=== PATIENT | female | born 1970 | race Caucasian/White ===

== ENCOUNTER 2022-02-15 11:56 | Day surgery (SDC) | payer MEDICARE ==
[2022-02-15] MEDS ORDERED: Depo-Medrol 40 MG/ML IM ONE (11:57)
[2022-02-15] MEDS ORDERED: BUPIVACAINE 0.5% VIAL IJ ONE (11:57)
[2022-02-15] MEDS ORDERED: Xylocaine 1% Vial 30 ML PF IJ ONE (11:57)
[2022-02-15] MEDS ORDERED: DIPRIVAN 200 MG/20 ML IV ONE (13:30)
[2022-02-15] MEDS ORDERED: Lactated Ringers 1,000 ML IV ONE (14:31)
--- NOTE | 2022-02-15 15:20 | XRAY ---
Indication: Bilateral costochondral injection and injection around pacemaker. Intraoperative fluoroscopy provided for 18 seconds. 4 digital spot images submitted for interpretation demonstrates 2 needle tips projecting midsternum and additional needle tip inferior to left pacemaker. Correlate with intraoperative findings/report.
--- NOTE | 2022-02-15 15:25 | XRAY ---
18 seconds fluoroscopy time in surgery for injections of the costochondral joints.
== END 2022-02-15 14:00 | disposition home or self-care (01) ==
LOC: SDC-PAIN 11:56
PROVIDERS: ATTEND Psychiatry & Neurology Pain Medicine
DX: M79.18 Myalgia, other site (principal); M94.0 Chondrocostal junction syndrome [Tietze]; Z79.899 Other long term (current) drug therapy
CPT/HCPCS: 20553; 20600; 72020; 77002; 81025; J1030; J2001; J2704

== ENCOUNTER 2024-02-05 15:20 | Emergency (ER) | payer MEDICARE ==
--- NOTE | 2024-02-05 15:30 | ERPHSYRPT ---
- History of Present Illness Time Seen by Provider: 02/05/24 15:30 Source: patient Exam Limitations: no limitations Physician History: This is an overweight 53-year-old white female patient of Dr. Taylor who presents with what she believes is a right inner ankle spider bite. She did not witness an insect of any kind biting her on the skin. She was just assuming because there have been a lot of spiders around her household recently. In the last year she has had lesions in this area repeatedly. She has always assumed that it is an insect bite. She also has associated joint pain and diarrhea that occurred recently. She is not on any antibiotic at this time. She has no history of diagnosed rheumatoid arthritis or other immunologic or rheumatologic disorders. Patient went to see her primary care provider today and he told her to come to the emergency department. Patient has a history of CHF, COPD and hypothyroidism. Timing/Duration: day(s) (3) Quality: burning, itchy Severity: mild Location: other (Medial aspect right ankle) Possible Causes: no cause identified Associated Symptoms: change in skin texture (Medial aspect right ankle) Allergies/Adverse Reactions: aspirin Adverse Reaction (Verified 02/05/24 15:48) Difficulty Swallowing gluten Adverse Reaction (Verified 02/05/24 15:48) Penicillins Adverse Reaction (Verified 02/05/24 15:48) Rash phenobarbital Adverse Reaction (Verified 02/05/24 15:48) "messes with heart" promethazine [From Phenergan] Adverse Reaction (Verified 02/05/24 15:48) "messes with heart" Home Medications: Albuterol 8 gm Mdi Hfa [Ventolin Hfa MDI] 1 puff IH Q12H PRN PRN 02/05/24 [History] Levothyroxine Sodium See Rx Instructions .ROUTE .COMPLEX 02/05/24 [History] Sacubitril/Valsartan [Entresto 24 mg-26 mg Tablet] 1 tab PO DAILY 02/05/24 [History] Torsemide 20 mg [Demadex 20 mg] 1 tab PO DAILY PRN 02/05/24 [History] Travel Risk - International Travel Have you traveled outside of the country in past 3 weeks: No - Emerging Infectious Disease Are you exhibiting symptoms associated with any current EIDs: No - Review of Systems Constitutional: No Symptoms, Night Sweats Ears, Nose, & Throat: No Symptoms Respiratory: No Symptoms Cardiac: No Symptoms Abdominal/Gastrointestinal: Diarrhea, No Abdominal Pain, No Nausea, No Vomiting, No Constipation, No Appetite Changes Genitourinary Symptoms: No Symptoms Musculoskeletal: Arthralgias, Myalgias Skin: Other (Right ankle medial aspect ulcerations/lesions x 3) Neurological: No Symptoms Psychological: No Symptoms Endocrine: No Symptoms Hematologic/Lymphatic: No Symptoms Immunological/Allergic: No Symptoms All Other Systems: Reviewed and Negative - Past Medical History Pertinent Past Medical History: Yes - Past Surgical History Past Surgical History: Yes - Nursing Vital Signs Nursing Vital Signs: Initial Vital Signs Temperature 97.4 F 02/05/24 15:34 Pulse Rate 80 02/05/24 15:34 Respiratory Rate 17 02/05/24 15:34 Blood Pressure 184/77 02/05/24 15:34 O2 Sat by Pulse Oximetry 99 02/05/24 15:34 Pain Scale Pain Intensity 2 - Physical Exam General Appearance: no apparent distress, alert, anxiety, obese Eye Exam: PERRL/EOMI, eyes nml inspection Ears, Nose, Throat Exam: normal ENT inspection, moist mucous membranes Neck Exam: normal inspection, non-tender, supple, full range of motion Respiratory Exam: normal breath sounds, lungs clear, airway intact, No chest tenderness, No respiratory distress Cardiovascular Exam: regular rate/rhythm, normal heart sounds, normal peripheral pulses Gastrointestinal/Abdomen Exam: No tenderness Pelvic Exam: not done Rectal Exam: not done Back Exam: normal inspection, normal range of motion, No CVA tenderness, No vertebral tenderness Extremity Exam: tenderness (Mild tenderness medial aspect right ankle with 3 coalesced ulcerations/lesions.) Neurologic Exam: alert, oriented x 3, cooperative, multineedle shirrer II-XII nml as tested, sensation nml Skin Exam: other (See above extremity section) - Course Nursing assessment & vital signs reviewed: Yes Ordered Tests: Active Orders 24 hr Category Date Time Status BLOOD CULTURE Stat Lab 02/05/24 17:15 Received CBC W DIFF Stat Lab 02/05/24 17:30 Completed CMP Stat Lab 02/05/24 17:30 Completed ESR [Erythrocyte Sedimentation Rate] Stat Lab 02/05/24 17:30 Completed Lactic Acid Stat Lab 02/05/24 17:00 Completed PROCALCITONIN Stat Lab 02/05/24 17:30 Completed Medication Summary Discontinued Medications Generic Name Dose Route Start Last Admin Trade Name Missy PRN Reason Stop Dose Admin Doxycycline Hyclate 100 mg 02/05/24 18:22 Doxycycline Hyclate 100 Mg Tablet PO 02/05/24 18:23 STAT ONE Metronidazole 500 mg 02/05/24 18:22 Metronidazole 500 Mg Tablet PO 02/05/24 18:23 STAT ONE Lab/Rad Data: Laboratory Result Diagrams 02/05/24 17:30 02/05/24 17:30 Laboratory Results 02/05/24 02/05/24 02/05/24 Range/Units 17:30 17:30 17:30 WBC (3.98-10.04) x10^3/uL RBC (3.93-5.22) x10^6/uL Hgb (11.2-15.7) g/dL Hct (34.1-44.9) % MCV (79.4-94.8) fL MCH (25.6-32.2) pg MCHC (32.2-35.5) g/dL RDW (11.7-14.4) % Plt Count (182-369) x10^3/uL MPV (9.4-12.3) fL Gran % (34.0-71.1) % Immature Gran % (Auto) (0.001-0.429) % Nucleat RBC Rel Count (0.00-0.2) % Eos # (Auto) (0.04-0.36) x10^3/uL Immature Gran # (Auto) (0.001-0.031) x10^3u/L Absolute Lymphs (auto) (1.18-3.74) x10^3/uL Absolute Monos (auto) (0.24-0.86) x10^3/uL Absolute Nucleated RBC (0.00-0.012) x10^3u/L Lymphocytes % (19.3-51.7) % Monocytes % (4.7-12.5) % Eosinophils % (0.7-5.8) % Basophils % (0.1-1.2) % Absolute Granulocytes (1.56-6.13) x10^3/uL Basophils # (0.01-0.08) x10^3/uL ESR 11 (0-20) mm/hr Sodium 141 (135-145) mmol/L Potassium 3.5 (3.5-5.1) mmol/L Chloride 106 (98-107) mmol/L Carbon Dioxide 24 (22-30) mmol/L Anion Gap 14.4 (5-15) MEQ/L BUN 14 (7-17) mg/dL Creatinine 0.91 (0.52-1.04) mg/dL Estimated GFR 75.9 ML/MIN Glucose 101 (74-106) mg/dL Lactic Acid (0.4-2.0) Calcium 9.0 (8.4-10.2) mg/dL Total Bilirubin 0.40 (0.2-1.3) mg/dL AST 29 (14-36) U/L ALT 19 (0-35) U/L Alkaline Phosphatase 81 (38-126) U/L Serum Total Protein 7.2 (6.3-8.2) g/dL Albumin 4.2 (3.5-5.0) g/dL Procalcitonin < 0.030 L (0.030-0.080) ng/mL 02/05/24 02/05/24 Range/Units 17:30 17:00 WBC 4.9 (3.98-10.04) x10^3/uL RBC 4.06 (3.93-5.22) x10^6/uL Hgb 11.4 (11.2-15.7) g/dL Hct 35.7 (34.1-44.9) % MCV 87.9 (79.4-94.8) fL MCH 28.1 (25.6-32.2) pg MCHC 31.9 L (32.2-35.5) g/dL RDW 13.7 (11.7-14.4) % Plt Count 116 L (182-369) x10^3/uL MPV 10.5 (9.4-12.3) fL Gran % 65.2 (34.0-71.1) % Immature Gran % (Auto) 0.2 (0.001-0.429) % Nucleat RBC Rel Count 0.0 (0.00-0.2) % Eos # (Auto) 0.06 (0.04-0.36) x10^3/uL Immature Gran # (Auto) 0.01 (0.001-0.031) x10^3u/L Absolute Lymphs (auto) 1.40 (1.18-3.74) x10^3/uL Absolute Monos (auto) 0.19 L (0.24-0.86) x10^3/uL Absolute Nucleated RBC 0.00 (0.00-0.012) x10^3u/L Lymphocytes % 28.9 (19.3-51.7) % Monocytes % 3.9 L (4.7-12.5) % Eosinophils % 1.2 (0.7-5.8) % Basophils % 0.6 (0.1-1.2) % Absolute Granulocytes 3.16 (1.56-6.13) x10^3/uL Basophils # 0.03 (0.01-0.08) x10^3/uL ESR (0-20) mm/hr Sodium (135-145) mmol/L Potassium (3.5-5.1) mmol/L Chloride (98-107) mmol/L Carbon Dioxide (22-30) mmol/L Anion Gap (5-15) MEQ/L BUN (7-17) mg/dL Creatinine (0.52-1.04) mg/dL Estimated GFR ML/MIN Glucose (74-106) mg/dL Lactic Acid 0.9 (0.4-2.0) Calcium (8.4-10.2) mg/dL Total Bilirubin (0.2-1.3) mg/dL AST (14-36) U/L ALT (0-35) U/L Alkaline Phosphatase (38-126) U/L Serum Total Protein (6.3-8.2) g/dL Albumin (3.5-5.0) g/dL Procalcitonin (0.030-0.080) ng/mL - Progress Progress: unchanged Progress Note: 02/05/24 18:37 My medical decision making and the assignment of moderate complexity to this patient's medical issue today is based on review of the patient's past medical history, review of the patient's medication list, review of the patient drug allergy list, history present illness and physical findings on examination. The workup in this patient includes procalcitonin level, ESR, lactic acid level, CBC, CMP and blood culture. Differential diagnosis includes but is not limited to an insect bite, varicose eczema I interpreted the patient's laboratory data results. Based on the results, the patient does not have an acute or emergent medical issue. It is my belief based on what I am seeing and also review of the laboratory data results, this patient has, more likely, a varicosity ulceration/eczema and not an insect bite. It seems highly unlikely that 3 separate times an insect bit her in the same area. On inspection and in my experience it is more likely a vascular issue. However, the patient is convinced there is an infection present and we will place her on doxycycline and Flagyl to help with her "infection". The doxycycline for skin issue and the Flagyl for controlling the diarrhea. 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 Take your ant ibiotics and other medications as prescribed. Follow-up with your primary care provider tomorrow by phone, 02/06/2024, to make arrangements for follow-up appointment including a discussion with possible referral to a vascular surgeon if indicated Prescriptions: Metronidazole 500 mg [Flagyl 500 MG] 500 mg PO TID #15 tablet Doxycycline Hyclate 100 mg [Vibramycin 100 MG] 100 mg PO BID #10 tab
[2024-02-05 15:55] VITALS: TEMP 97.4
[2024-02-05 17:46] LABS: Absolute Neutrophil Ct (ANC) 3.16 x10^3/uL (1.56-6.13); BASOPHIL % 0.6 % (0.1-1.2); Basophil (Absolute #) 0.03 x10^3/uL (0.01-0.08); Eosinophil % 1.2 % (0.7-5.8); Eosinophil (Absolute #) 0.06 x10^3/uL (0.04-0.36); Hematocrit 35.7 % (34.1-44.9); Hemoglobin 11.4 g/dL (11.2-15.7); IMMATURE GRAN # 0.01 x10^3u/L (0.001-0.031); IMMATURE GRAN % 0.2 % (0.001-0.429); Lymphocytes % 28.9 % (19.3-51.7); Mean Cell Volume 87.9 fL (79.4-94.8); Mean Corpuscular Hemoglobin 28.1 pg (25.6-32.2); Mean Corpuscular Hgb Concent. 31.9 g/dL (32.2-35.5); Mean Platelet Volume 10.5 fL (9.4-12.3); Monocyte (Absolute #) 0.19 x10^3/uL (0.24-0.86); Monocytes % 3.9 % (4.7-12.5); Neutrophil % 65.2 % (34.0-71.1); Platelet Count 116 x10^3/uL (182-369); Red Blood Count 4.06 x10^6/uL (3.93-5.22); Red Cell Distribution Width 13.7 % (11.7-14.4); White Blood Count 4.9 x10^3/uL (3.98-10.04)
[2024-02-05 17:57] LABS: ALBUMIN 4.2 g/dL (3.5-5.0); ANION GAP 14.4 MEQ/L (5-15); BILIRUBIN,TOTAL 0.4 mg/dL (0.2-1.3); Creatinine 1 0.91 mg/dL (0.52-1.04); EST GLOMERULAR FILTRATION RATE 75.9 ML/MIN; Potassium 3.5 mmol/L (3.5-5.1); Total Protein 7.2 g/dL (6.3-8.2)
[2024-02-05] MEDS ORDERED: Flagyl 500 MG ONE (18:42)
[2024-02-05] MEDS ORDERED: Vibramycin 100 MG ONE (18:42)
[2024-02-05] MEDS: Flagyl 500 MG PO ONE (18:43)
[2024-02-05] MEDS: Vibramycin 100 MG PO ONE (18:43)
[2024-02-05 19:34] VITALS: BP 130/61; PULSE 57; RESP 20; O2SAT 93
== END 2024-02-05 19:34 | disposition home or self-care (01) ==
LOC: ED 15:20
DX: I83.213 Varicose veins of right lower extremity with both ulcer of ankle and inflammation (principal); L97.319 Non-pressure chronic ulcer of right ankle with unspecified severity; R19.7 Diarrhea, unspecified; I50.9 Heart failure, unspecified; Z79.899 Other long term (current) drug therapy
CPT/HCPCS: 36415; 80053; 83605; 84145; 85025; 85652; 87040; 99283; A9270-GY

== ENCOUNTER 2025-03-12 14:15 | Day surgery (SDC) | payer MEDICARE ==
[2025-03-12 15:26] LABS: HCG URINE TEST NEGATIVE (NEGATIVE)
[2025-03-12] MEDS ORDERED: Lactated Ringers 1,000 ML IV ONE (16:05)
[2025-03-12] MEDS ORDERED: propofoL IV ONE (16:22)
--- NOTE | 2025-03-12 17:14 | XRAY ---
Indication: Bilateral intercostal nerve block. Intraoperative fluoroscopy provided for 22 seconds. 6 digital spot images submitted for interpretation demonstrates 3 lateral right and 3 lateral left needle tips projecting lateral to unknown lower ribs. Correlate with intraoperative findings/report.
--- NOTE | 2025-03-13 09:00 | XRAY ---
22 seconds of fluoroscopy were used in surgery for bilateral intercostal nerve blocks.
== END 2025-03-12 16:50 | disposition home or self-care (01) ==
LOC: SDC-PAIN 14:15
PROVIDERS: ATTEND Psychiatry & Neurology Pain Medicine
DX: R07.81 Pleurodynia (principal)